=== PATIENT | male | born 1970 | race Two or more races ===

== ENCOUNTER 2022-08-28 00:35 | Emergency (ER) | payer OTHER ==
[~2022-08-28] VITALS: Ht 160 cm; Wt 73.5 kg
[~2022-08-28 00:35] MED LIST: CALAN80 MG
[2022-08-28] MEDS ORDERED: LOSARTAN POTASS50 MG PO (00:45)
[2022-08-28] MEDS ORDERED: FLONASE16 GM NASAL (04:46)
[2022-08-28] MEDS ORDERED: ZYNCOF 20-400120 ML PO (04:46)
== END 2022-08-28 05:03 ==
LOC: ER 00:35
DX: J06.9 Acute upper respiratory infection, unspecified (principal); Z20.822 Contact with and (suspected) exposure to COVID-19; Z88.0 Allergy status to penicillin; I10 Essential (primary) hypertension

== ENCOUNTER 2023-01-21 19:49 | Emergency (ER) | payer OTHER ==
[~2023-01-21] VITALS: Ht 160 cm; Wt 71.2 kg
[~2023-01-21 19:49] MED LIST changes: +FLONASE16 GM NASAL; +LOSARTAN POTASS50 MG PO; +ZYNCOF 20-400120 ML PO
[2023-01-21] MEDS ORDERED: SIMVASTATIN5 MG PO (20:16)
== END 2023-01-21 20:30 | disposition home or self-care (01) ==
LOC: ER 19:49
DX: B05.9 Measles without complication (principal); Z88.0 Allergy status to penicillin

== ENCOUNTER 2024-12-06 18:55 | Emergency (ER) | payer OTHER ==
[~2024-12-06] VITALS: Ht 172.7 cm; Wt 71.2 kg
[~2024-12-06 18:55] MED LIST changes: +SIMVASTATIN5 MG PO
[2024-12-07 00:27] LABS: BASO % 0.5 % (0.1-1.2); EOS # 0.22 (0.04-0.54); HEMATOCRIT 45.1 % (40.1-51.0); HEMOGLOBIN 15.3 g/dL (13.7-17.5); LYMPH # 1.74 (1.18-3.74); LYMPH % 39.8 % (19.3-53.1); MEAN CORPUSCULAR HEMOGLOBIN 32.1 pg (25.6-32.2); MONO # 0.62 (0.24-0.82); MONO % 14.2 % (4.7-12.5); NEUT # 1.75 (1.56-6.13); PLATELET COUNT 175 K/uL (163-369); RED BLOOD COUNT 4.76 M/uL (4.63-6.08); RED CELL DISTRIBUTION WIDTH 11.6 % (11.6-14.4)
[2024-12-07 00:55] LABS: COVID-19 AG NEGATIVE (NEGATIVE); INFLUENZA A AG NEGATIVE (NEGATIVE)
== END 2024-12-07 01:24 | disposition home or self-care (01) ==
LOC: ER 18:55
PROVIDERS: Preventive Medicine Public Health & General Preventive Medicine
DX: J06.9 Acute upper respiratory infection, unspecified (principal); Z88.0 Allergy status to penicillin; I10 Essential (primary) hypertension; Z20.822 Contact with and (suspected) exposure to COVID-19